=== PATIENT | female | born 1975 | race Caucasian/White ===

== ENCOUNTER 2016-10-09 07:59 | Emergency (ER) | payer MEDICAID ==
[~2016-10-09 07:59] MED LIST: AMBIEN5 MG PO; BENADRYL ALLERG25 M1 PO; CARAFATE1 GM PO; CLARITHROMYCIN500 M1 PO; COL100 PO; COLACE100 MG PO; ELA25 PO; GABAPENTIN300 M2 PO; LORAZEPAM2 MG PO; METHYLPREDNISOLO4 MG PO; MIRALAX17 GM/Dose PO; NEU300 PO; NOR10T PO; PANTOPRAZOLE SO40 M1 PO; PERCOCET1 TA2 PO; POTASSIUM CHLO20 ME1 PO; PROAIR HFA0.09 MG/A1; SERTRALINE HYDR50 M1 PO; VENTOLIN H0.09 MG/A1 INH; ZOC20 PO; ZOFRAN4 M2 PO; ZOLOFT25 MG PO
[2016-10-09] MEDS ORDERED: LOPERAMIDE HCL2 M1 PO (08:12)
[2016-10-09 08:40] LABS: PLATELET COUNT 153 x10^3mcL (130-400)
[2016-10-09 09:03] LABS: CALCIUM 8.8 mg/dL (8.5-10.1); CARBON DIOXIDE 24.2 mmol/L (21-32); CHLORIDE SERUM 109 mmol/L (98-107); CREATININE SERUM 0.7 mg/dL (0.6-1.0); GFR1 > 60 mL/min; GLUCOSE SERUM 105 mg/dL (74-106); POTASSIUM SERUM 3.4 mmol/L (3.5-5.1); SODIUM SERUM 143 mmol/L (136-145)
[2016-10-09 09:06] LABS: RED CELL DISTRIBUTION WIDTH 15.1 % (11.5-14.5)
[2016-10-09 09:07] LABS: ALBUMIN 3.7 g/dL (3.4-5.0); ALKALINE PHOSPHATASE 66 U/L (46-116); ALT/SGPT 12 U/L (14-59); AST/SGOT 12 U/L (15-37); BILIRUBIN TOTAL 0.31 mg/dL (0.20-1.00); TOTAL PROTEIN, SERUM 7.8 g/dL (6.4-8.2)
[2016-10-09 09:14] LABS: ATYPICAL LYMPH 3 %; MONOCYTE 14 % (0-7); SEGMENTED NEUTROPHILS 16 % (37-75); rbc morphology (normal/abnorm) NORMAL (NORMAL)
[2016-10-09 10:34] VITALS: BP 126/94
== END 2016-10-09 10:34 | disposition home or self-care (01) ==
LOC: ED 07:59
PROVIDERS: Emergency Medicine
DX: R40.4 Transient alteration of awareness (principal); R03.0 Elevated blood-pressure reading, without diagnosis of hypertension; Z88.5 Allergy status to narcotic agent; Z88.8 Allergy status to other drugs, medicaments and biological substances
CPT/HCPCS: J2060

== ENCOUNTER 2017-01-27 16:52 | Emergency (ER) | payer OTHER ==
[~2017-01-27] VITALS: Ht 154.9 cm; Wt 91.2 kg
[~2017-01-27 16:52] MED LIST changes: +LOPERAMIDE HCL2 M1 PO
[2017-01-27 19:04] LABS: UA SPECIFIC GRAVITY 1.025 (1.005-1.035); microscopic required? YES; urine erythrocyte NEGATIVE (NEGATIVE)
[2017-01-27 19:10] LABS: PLATELET COUNT 123 x10^3mcL (130-400); RED CELL DISTRIBUTION WIDTH 17.3 % (11.5-14.5)
[2017-01-27 19:13] LABS: ALKALINE PHOSPHATASE 66 U/L (46-116); ALT/SGPT 19 U/L (14-59); AST/SGOT 23 U/L (15-37); BILIRUBIN TOTAL 0.3 mg/dL (0.20-1.00); CALCIUM 8.5 mg/dL (8.5-10.1); CARBON DIOXIDE 24.7 mmol/L (21-32); CHLORIDE SERUM 108 mmol/L (98-107); CREATININE SERUM 0.7 mg/dL (0.6-1.0); GFR1 > 60 mL/min; GLUCOSE SERUM 89 mg/dL (74-106); LIPASE 621 IU/L (73-393); SODIUM SERUM 141 mmol/L (136-145); TOTAL PROTEIN, SERUM 7.9 g/dL (6.4-8.2)
[2017-01-27 19:18] LABS: ALBUMIN 3.3 g/dL (3.4-5.0)
[2017-01-27 19:20] LABS: POTASSIUM SERUM 2.7 mmol/L (3.5-5.1)
[2017-01-27 19:35] VITALS: BP 150/94
[2017-01-27 20:16] LABS: BAND NEUTROPHIL 0 % (0-10); BASOPHIL 0 % (0-2); MONOCYTE 18 % (0-7); SEGMENTED NEUTROPHILS 30 % (37-75)
[2017-01-27 20:17] LABS: rbc morphology (normal/abnorm) ABNORMAL (NORMAL)
== END 2017-01-27 20:18 | disposition left against medical advice (07) ==
LOC: ED 16:52
PROVIDERS: Emergency Medicine
DX: K86.1 Other chronic pancreatitis (principal); E87.6 Hypokalemia; R79.89 Other specified abnormal findings of blood chemistry; M32.9 Systemic lupus erythematosus, unspecified; M79.7 Fibromyalgia; Q05.9 Spina bifida, unspecified; Z90.49 Acquired absence of other specified parts of digestive tract; Z90.81 Acquired absence of spleen
CPT/HCPCS: J1885; J2060; J2765; J3490

== ENCOUNTER 2017-03-29 02:36 | Emergency (ER) | payer OTHER ==
[2017-03-29 04:41] VITALS: BP 132/105
[2017-03-29 04:45] LABS: AMPHETAMINE QUAL UR NONE DETECTED (NEG <=1000)
== END 2017-03-29 04:41 | disposition home or self-care (01) ==
LOC: ED 02:36
PROVIDERS: Emergency Medicine
DX: M79.1 Myalgia (principal); R19.7 Diarrhea, unspecified; M32.9 Systemic lupus erythematosus, unspecified; Q05.9 Spina bifida, unspecified; M35.00 Sjogren syndrome, unspecified; Z88.8 Allergy status to other drugs, medicaments and biological substances

== ENCOUNTER 2017-03-31 12:22 | Inpatient (IN) | payer OTHER ==
[~2017-03-31] VITALS: Ht 157.5 cm; Wt 94.1 kg
[2017-03-31 14:21] LABS: PLATELET COUNT 76 x10^3mcL (130-400); RED CELL DISTRIBUTION WIDTH 20.8 % (11.5-14.5)
[2017-03-31 14:24] LABS: ALKALINE PHOSPHATASE 63 U/L (46-116); ALT/SGPT 19 U/L (14-59); AST/SGOT 22 U/L (15-37); BILIRUBIN TOTAL 0.4 mg/dL (0.20-1.00); CALCIUM 8.7 mg/dL (8.5-10.1); CARBON DIOXIDE 24.2 mmol/L (21-32); CHLORIDE SERUM 107 mmol/L (98-107); GFR1 > 60 mL/min; GLUCOSE SERUM 98 mg/dL (74-106); TOTAL PROTEIN, SERUM 7.6 g/dL (6.4-8.2)
[2017-03-31 14:41] LABS: SODIUM SERUM 141 mmol/L (136-145)
[2017-03-31 14:43] LABS: ALBUMIN 3.3 g/dL (3.4-5.0)
[2017-03-31 14:44] LABS: LIPASE 12075 IU/L (73-393); POTASSIUM SERUM 2.9 mmol/L (3.5-5.1)
[2017-03-31 14:53] LABS: BAND NEUTROPHIL 0 % (0-10); BASOPHIL 0 % (0-2); MONOCYTE 11 % (0-7); SEGMENTED NEUTROPHILS 59 % (37-75); rbc morphology (normal/abnorm) ABNORMAL (NORMAL)
[2017-03-31 15:55] VITALS: BP 117/82
[2017-03-31 16:33] LABS: CHOLESTEROL/HDL RATIO 1.9; MAGNESIUM 1.6 mg/dL (1.8-2.4); PHOSPHOROUS 3.6 mg/dL (2.5-4.9)
[2017-03-31 16:50] VITALS: BP 101/70
[2017-03-31 17:35] LABS: FREE T4 1.31 ng/dL (0.76-1.46); FREE THYROXINE INDEX 3.5 ug/dL (1.4-4.5); T4(THYROXINE) 11.8 ug/dL (4.7-13.3)
[2017-03-31 21:45] VITALS: BP 112/81
[2017-04-01 05:49] VITALS: BP 169/68
[2017-04-01 06:47] LABS: CALCIUM 7.6 mg/dL (8.5-10.1); CARBON DIOXIDE 21.5 mmol/L (21-32); CHLORIDE SERUM 109 mmol/L (98-107); CREATININE SERUM 0.6 mg/dL (0.6-1.0); GFR1 > 60 mL/min; GLUCOSE SERUM 99 mg/dL (74-106); MAGNESIUM 1.6 mg/dL (1.8-2.4); PHOSPHOROUS 2.8 mg/dL (2.5-4.9); POTASSIUM SERUM 3.5 mmol/L (3.5-5.1); SODIUM SERUM 140 mmol/L (136-145)
[2017-04-01 06:48] LABS: AMYLASE 441 U/L (25-115)
[2017-04-01 08:09] LABS: PLATELET COUNT 63 x10^3mcL (130-400); RED CELL DISTRIBUTION WIDTH 21.3 % (11.5-14.5)
[2017-04-01 08:42] LABS: LIPASE 11133 IU/L (73-393)
[2017-04-01 11:17] VITALS: BP 132/91
[2017-04-01 12:29] LABS: BAND NEUTROPHIL 0 % (0-10); BASOPHIL 0 % (0-2)
[2017-04-01 12:30] LABS: SEGMENTED NEUTROPHILS 65 % (37-75)
[2017-04-01 12:33] LABS: MONOCYTE 10 % (0-7)
[2017-04-01 12:35] LABS: PLATELET MORPHOLOGY PLATELETS DECREASED; ovalocyte/elliptocyte 1+; rbc morphology (normal/abnorm) ABNORMAL (NORMAL); target cell (codocyte) 1+
== END 2017-04-01 14:00 | disposition left against medical advice (07) | DRG 439 ==
LOC: ED 12:22 → DU 14:52
PROVIDERS: Emergency Medicine; ADMIT Family Medicine
DX: K85.90 Acute pancreatitis without necrosis or infection, unspecified (principal); D69.3 Immune thrombocytopenic purpura; E44.1 Mild protein-calorie malnutrition; E87.6 Hypokalemia; M32.9 Systemic lupus erythematosus, unspecified; M35.00 Sjogren syndrome, unspecified; M79.7 Fibromyalgia; E83.41 Hypermagnesemia; E05.90 Thyrotoxicosis, unspecified without thyrotoxic crisis or storm; E78.5 Hyperlipidemia, unspecified; F17.210 Nicotine dependence, cigarettes, uncomplicated; Z68.38 Body mass index [BMI] 38.0-38.9, adult
CPT/HCPCS: 83880; 84439; G0480; J1200; J1885; J2765; J3010; J3480; J7030; J7120; Q0092

== ENCOUNTER 2017-04-02 10:17 | Emergency (ER) | payer OTHER ==
[2017-04-02 11:35] LABS: CALCIUM 7.8 mg/dL (8.5-10.1); CARBON DIOXIDE 23.6 mmol/L (21-32); CHLORIDE SERUM 108 mmol/L (98-107); CREATININE SERUM 0.5 mg/dL (0.6-1.0); GFR1 > 60 mL/min; GLUCOSE SERUM 92 mg/dL (74-106); POTASSIUM SERUM 3.1 mmol/L (3.5-5.1); SODIUM SERUM 140 mmol/L (136-145)
[2017-04-02 11:40] LABS: ALKALINE PHOSPHATASE 57 U/L (46-116); ALT/SGPT 11 U/L (14-59); AST/SGOT 12 U/L (15-37); BILIRUBIN TOTAL 0.5 mg/dL (0.20-1.00); TOTAL PROTEIN, SERUM 6.3 g/dL (6.4-8.2)
[2017-04-02 11:58] LABS: ALBUMIN 2.5 g/dL (3.4-5.0); AMYLASE 200 U/L (25-115)
[2017-04-02 11:59] LABS: LIPASE 6521 IU/L (73-393)
[2017-04-02 12:07] LABS: PLATELET COUNT 53 x10^3mcL (130-400); RED CELL DISTRIBUTION WIDTH 21.2 % (11.5-14.5)
[2017-04-02 12:09] LABS: BAND NEUTROPHIL 1 % (0-10); MONOCYTE 8 % (0-7); SEGMENTED NEUTROPHILS 78 % (37-75); rbc morphology (normal/abnorm) ABNORMAL (NORMAL)
[2017-04-02 13:57] VITALS: BP 129/90
== END 2017-04-02 13:57 | disposition home or self-care (01) ==
LOC: ED 10:17
PROVIDERS: Emergency Medicine
DX: K85.20 Alcohol induced acute pancreatitis without necrosis or infection (principal); Q05.9 Spina bifida, unspecified; F41.9 Anxiety disorder, unspecified; F32.9 Major depressive disorder, single episode, unspecified; L93.0 Discoid lupus erythematosus; Z90.710 Acquired absence of both cervix and uterus; Z88.6 Allergy status to analgesic agent; M79.7 Fibromyalgia
CPT/HCPCS: J2550; J3010; J7030

== ENCOUNTER 2017-05-30 12:48 | Inpatient (IN) | payer OTHER ==
[~2017-05-30] VITALS: Ht 154.9 cm; Wt 91.2 kg
[2017-05-30 14:21] LABS: microscopic required? NO
[2017-05-30 14:37] LABS: urine erythrocyte NEGATIVE (NEGATIVE)
[2017-05-30 14:46] LABS: AMPHETAMINE QUAL UR NONE DETECTED (NEG <=1000)
[2017-05-30 14:49] LABS: PLATELET COUNT 85 x10^3mcL (130-400); RED CELL DISTRIBUTION WIDTH 17.7 % (11.5-14.5)
[2017-05-30] MEDS ORDERED: MSC15 PO (14:49)
[2017-05-30 15:04] LABS: MAGNESIUM 1.7 mg/dL (1.8-2.4); PHOSPHOROUS 2.3 mg/dL (2.5-4.9)
[2017-05-30 15:05] LABS: ALBUMIN 3.4 g/dL (3.4-5.0); ALKALINE PHOSPHATASE 62 U/L (46-116); ALT/SGPT 17 U/L (14-59); AST/SGOT 16 U/L (15-37); BILIRUBIN TOTAL 0.58 mg/dL (0.20-1.00); CALCIUM 8.9 mg/dL (8.5-10.1); CARBON DIOXIDE 23.1 mmol/L (21-32); CHLORIDE SERUM 103 mmol/L (98-107); CREATININE SERUM 0.6 mg/dL (0.6-1.0); GFR1 > 60 mL/min; GLUCOSE SERUM 148 mg/dL (74-106); SODIUM SERUM 137 mmol/L (136-145); TOTAL PROTEIN, SERUM 7.7 g/dL (6.4-8.2)
[2017-05-30 15:06] LABS: AMYLASE 217 U/L (25-115)
[2017-05-30 15:08] LABS: POTASSIUM SERUM 2.9 mmol/L (3.5-5.1)
[2017-05-30 15:14] LABS: BAND NEUTROPHIL 0 % (0-10); BASOPHIL 0 % (0-2); MONOCYTE 12 % (0-7); SEGMENTED NEUTROPHILS 42 % (37-75)
[2017-05-30 15:15] LABS: rbc morphology (normal/abnorm) NORMAL (NORMAL)
[2017-05-30 15:30] LABS: LIPASE 7770 IU/L (73-393)
[2017-05-30 16:23] VITALS: BP 146/72
[2017-05-30 16:26] VITALS: Ht 154.9 cm; Wt 91.2 kg
[2017-05-30 21:11] VITALS: BP 157/86
[2017-05-30 21:32] LABS: CALCIUM 8.3 mg/dL (8.5-10.1); CARBON DIOXIDE 25.5 mmol/L (21-32); CHLORIDE SERUM 105 mmol/L (98-107); CREATININE SERUM 0.5 mg/dL (0.6-1.0); GFR1 > 60 mL/min; GLUCOSE SERUM 173 mg/dL (74-106); POTASSIUM SERUM 3.5 mmol/L (3.5-5.1); SODIUM SERUM 138 mmol/L (136-145)
[2017-05-31 04:44] VITALS: BP 154/101
[2017-05-31 06:42] LABS: BASOPHIL % 0 % (0-2); PLATELET COUNT 80 x10^3mcL (130-400); RED CELL DISTRIBUTION WIDTH 17.9 % (11.5-14.5)
[2017-05-31 06:43] LABS: CALCIUM 8.4 mg/dL (8.5-10.1); CARBON DIOXIDE 25.9 mmol/L (21-32); CHLORIDE SERUM 104 mmol/L (98-107); CREATININE SERUM 0.5 mg/dL (0.6-1.0); GFR1 > 60 mL/min; GLUCOSE SERUM 117 mg/dL (74-106); POTASSIUM SERUM 3.5 mmol/L (3.5-5.1); SODIUM SERUM 139 mmol/L (136-145)
[2017-05-31 07:00] LABS: MAGNESIUM 1.9 mg/dL (1.8-2.4); PHOSPHOROUS 1.9 mg/dL (2.5-4.9)
[2017-05-31 07:46] LABS: AMYLASE 219 U/L (25-115); LIPASE 4801 IU/L (73-393)
[2017-05-31 08:00] VITALS: BP 152/92
[2017-05-31] MEDS ORDERED: PERCOCET1 TA5 PO (12:10)
[2017-05-31 14:02] VITALS: BP 122/81
[2017-05-31 17:49] VITALS: BP 137/85
[2017-05-31 20:46] VITALS: BP 142/99
[2017-06-01 04:49] VITALS: BP 131/92
[2017-06-01 05:57] LABS: BASOPHIL % 0.4 % (0-2)
[2017-06-01 06:32] LABS: CALCIUM 7.9 mg/dL (8.5-10.1); CARBON DIOXIDE 19.9 mmol/L (21-32); CHLORIDE SERUM 113 mmol/L (98-107); CREATININE SERUM 0.4 mg/dL (0.6-1.0); GFR1 > 60 mL/min; GLUCOSE SERUM 81 mg/dL (74-106); PHOSPHOROUS 2.3 mg/dL (2.5-4.9); POTASSIUM SERUM 3.7 mmol/L (3.5-5.1); SODIUM SERUM 142 mmol/L (136-145)
[2017-06-01 06:39] LABS: PLATELET COUNT 74 x10^3mcL (130-400); RED CELL DISTRIBUTION WIDTH 18.8 % (11.5-14.5)
[2017-06-01 06:46] LABS: AMYLASE 216 U/L (25-115)
[2017-06-01 08:19] LABS: LIPASE 3905 IU/L (73-393)
[2017-06-01 09:28] VITALS: BP 139/84
[2017-06-01 13:10] VITALS: BP 127/83
[2017-06-01 16:51] VITALS: BP 129/89
== END 2017-06-01 19:47 | disposition left against medical advice (07) | DRG 438 ==
LOC: ED 12:48 → MU 14:25 → DU 14:25 → MU 06-01 09:44
PROVIDERS: Emergency Medicine; Student in an Organized Health Care Education/Training Program
DX: K85.90 Acute pancreatitis without necrosis or infection, unspecified (principal); E43 Unspecified severe protein-calorie malnutrition; D69.3 Immune thrombocytopenic purpura; K86.1 Other chronic pancreatitis; R59.0 Localized enlarged lymph nodes; E87.6 Hypokalemia; E83.42 Hypomagnesemia; E83.39 Other disorders of phosphorus metabolism; M32.9 Systemic lupus erythematosus, unspecified; M79.7 Fibromyalgia; F32.9 Major depressive disorder, single episode, unspecified; E78.5 Hyperlipidemia, unspecified; F41.9 Anxiety disorder, unspecified; F17.210 Nicotine dependence, cigarettes, uncomplicated; E66.9 Obesity, unspecified; Z68.38 Body mass index [BMI] 38.0-38.9, adult; Z53.29 Procedure and treatment not carried out because of patient's decision for other reasons; Z90.49 Acquired absence of other specified parts of digestive tract; Z80.8 Family history of malignant neoplasm of other organs or systems
CPT/HCPCS: 36600; 83880; G0480; J0295; J1885; J2060; J2270; J2550; J3480; J7030; J8597; Q0163; Q9967

== ENCOUNTER 2017-08-05 05:57 | Emergency (ER) | payer OTHER ==
[~2017-08-05] VITALS: Ht 152.4 cm; Wt 90.9 kg
[~2017-08-05 05:57] MED LIST changes: +MSC15 PO; +PERCOCET1 TA5 PO
[2017-08-05 06:02] VITALS: Ht 152.4 cm; Wt 90.9 kg
[2017-08-05 07:28] LABS: ALKALINE PHOSPHATASE 51 U/L (46-116); ALT/SGPT 18 U/L (14-59); AMYLASE 55 U/L (25-115); AST/SGOT 24 U/L (15-37); BILIRUBIN TOTAL 0.32 mg/dL (0.20-1.00); CALCIUM 8.3 mg/dL (8.5-10.1); CARBON DIOXIDE 24.1 mmol/L (21-32); CHLORIDE SERUM 106 mmol/L (98-107); CREATININE SERUM 0.4 mg/dL (0.6-1.0); GFR1 > 60 mL/min; GLUCOSE SERUM 108 mg/dL (74-106); LIPASE 187 IU/L (73-393); SODIUM SERUM 139 mmol/L (136-145); TOTAL PROTEIN, SERUM 7.3 g/dL (6.4-8.2)
[2017-08-05 07:44] LABS: PLATELET COUNT 89 x10^3mcL (130-400); RED CELL DISTRIBUTION WIDTH 16.1 % (11.5-14.5)
[2017-08-05 08:56] LABS: UA SPECIFIC GRAVITY 1.025 (1.005-1.035); microscopic required? YES; urine erythrocyte 1+ (NEGATIVE)
[2017-08-05 09:02] LABS: ALBUMIN 3.3 g/dL (3.4-5.0); POTASSIUM SERUM 2.8 mmol/L (3.5-5.1)
[2017-08-05 09:48] VITALS: BP 118/72
[2017-08-05 10:42] LABS: BAND NEUTROPHIL 0 % (0-10); BASOPHIL 0 % (0-2); MONOCYTE 11 % (0-7); SEGMENTED NEUTROPHILS 19 % (37-75)
[2017-08-05 10:43] LABS: PLATELET MORPHOLOGY PLATELETS DECREASED; rbc morphology (normal/abnorm) ABNORMAL (NORMAL)
[2017-08-05 10:44] LABS: target cell (codocyte) 1+
== END 2017-08-05 09:48 | disposition left against medical advice (07) ==
LOC: ED 05:57
PROVIDERS: Emergency Medicine
DX: E87.6 Hypokalemia (principal); D64.9 Anemia, unspecified; E46 Unspecified protein-calorie malnutrition; M79.7 Fibromyalgia; F32.9 Major depressive disorder, single episode, unspecified; E66.01 Morbid (severe) obesity due to excess calories; M32.9 Systemic lupus erythematosus, unspecified; M35.00 Sjogren syndrome, unspecified; F11.20 Opioid dependence, uncomplicated; Q05.9 Spina bifida, unspecified; D69.3 Immune thrombocytopenic purpura; Z90.49 Acquired absence of other specified parts of digestive tract; Z87.19 Personal history of other diseases of the digestive system; Z88.8 Allergy status to other drugs, medicaments and biological substances
CPT/HCPCS: 83880; J3490; J7030

== ENCOUNTER 2018-01-16 03:09 | Emergency (ER) | payer OTHER ==
[~2018-01-16] VITALS: Ht 154.9 cm; Wt 85.7 kg
[2018-01-16 03:14] VITALS: Ht 154.9 cm; Wt 85.7 kg
[2018-01-16 04:29] LABS: PLATELET COUNT 137 x10^3mcL (130-400)
[2018-01-16 04:33] LABS: CALCIUM 8.6 mg/dL (8.5-10.1); CARBON DIOXIDE 22.1 mmol/L (21-32); CHLORIDE SERUM 108 mmol/L (98-107); CREATININE SERUM 0.8 mg/dL (0.6-1.0); GFR1 > 60 mL/min; GLUCOSE SERUM 106 mg/dL (74-106); POTASSIUM SERUM 3.1 mmol/L (3.5-5.1); SODIUM SERUM 140 mmol/L (136-145)
[2018-01-16 04:39] LABS: ALBUMIN 3.5 g/dL (3.4-5.0); ALKALINE PHOSPHATASE 63 U/L (46-116); ALT/SGPT 15 U/L (14-59); AST/SGOT 16 U/L (15-37); BILIRUBIN TOTAL 0.1 mg/dL (0.20-1.00); LIPASE 399 IU/L (73-393); TOTAL PROTEIN, SERUM 7.9 g/dL (6.4-8.2)
[2018-01-16 04:59] LABS: RED CELL DISTRIBUTION WIDTH 15.1 % (11.5-14.5)
[2018-01-16 05:05] LABS: BASOPHIL % 0.5 % (0-2)
[2018-01-16 06:10] LABS: microscopic required? NO
[2018-01-16 06:42] LABS: UA SPECIFIC GRAVITY 1.015 (1.005-1.035); urine erythrocyte NEGATIVE (NEGATIVE)
[2018-01-16 08:04] VITALS: BP 138/88
== END 2018-01-16 08:04 | disposition home or self-care (01) ==
LOC: ED 03:09
PROVIDERS: Emergency Medicine
DX: K59.8 Other specified functional intestinal disorders (principal); F41.9 Anxiety disorder, unspecified; F32.9 Major depressive disorder, single episode, unspecified; M79.7 Fibromyalgia; G89.29 Other chronic pain; Z90.710 Acquired absence of both cervix and uterus; Z88.8 Allergy status to other drugs, medicaments and biological substances
CPT/HCPCS: J2270; Q9967

== ENCOUNTER 2018-04-01 13:28 | Emergency (ER) | payer OTHER ==
[~2018-04-01] VITALS: Ht 152.4 cm; Wt 82.6 kg
[2018-04-01 13:32] VITALS: Ht 152.4 cm; Wt 82.6 kg
[2018-04-01 14:41] LABS: BASOPHIL % 0.2 % (0-2)
[2018-04-01 14:44] LABS: RED CELL DISTRIBUTION WIDTH 15.4 % (11.5-14.5)
[2018-04-01 14:58] LABS: PLATELET COUNT 25 x10^3mcL (130-400)
[2018-04-01 16:01] LABS: CARBON DIOXIDE 21.6 mmol/L (21-32); CHLORIDE SERUM 107 mmol/L (98-107); CREATININE SERUM 0.7 mg/dL (0.6-1.0); GFR1 > 60 mL/min; GLUCOSE SERUM 101 mg/dL (74-106); POTASSIUM SERUM 3.3 mmol/L (3.5-5.1); SODIUM SERUM 141 mmol/L (136-145)
[2018-04-01 16:05] LABS: ALBUMIN 3.6 g/dL (3.4-5.0); ALKALINE PHOSPHATASE 53 U/L (46-116); ALT/SGPT 14 U/L (14-59); AST/SGOT 16 U/L (15-37); BILIRUBIN TOTAL 0.3 mg/dL (0.20-1.00); LIPASE 465 IU/L (73-393); TOTAL PROTEIN, SERUM 8.1 g/dL (6.4-8.2)
[2018-04-01 16:50] VITALS: BP 140/102
== END 2018-04-01 16:50 | disposition home or self-care (01) ==
LOC: ED 13:28
PROVIDERS: Emergency Medicine
DX: K86.1 Other chronic pancreatitis (principal); F41.9 Anxiety disorder, unspecified; F32.9 Major depressive disorder, single episode, unspecified; M79.7 Fibromyalgia; Z90.710 Acquired absence of both cervix and uterus; Z88.8 Allergy status to other drugs, medicaments and biological substances
CPT/HCPCS: J2270; J2765; J7030

== ENCOUNTER 2018-04-02 23:54 | Inpatient (IN) | payer OTHER ==
[~2018-04-02] VITALS: Ht 152.4 cm; Wt 94.0 kg
[2018-04-03 01:26] VITALS: Ht 152.4 cm; Wt 94.0 kg
[2018-04-03 01:36] LABS: microscopic required? NO
[2018-04-03 01:39] LABS: ALBUMIN 3.4 g/dL (3.4-5.0); ALKALINE PHOSPHATASE 55 U/L (46-116); ALT/SGPT 12 U/L (14-59); AST/SGOT 18 U/L (15-37); BILIRUBIN TOTAL 0.27 mg/dL (0.20-1.00); CALCIUM 8.4 mg/dL (8.5-10.1); CARBON DIOXIDE 18.5 mmol/L (21-32); CHLORIDE SERUM 106 mmol/L (98-107); CREATININE SERUM 0.5 mg/dL (0.6-1.0); GFR1 > 60 mL/min; GLUCOSE SERUM 86 mg/dL (74-106); LIPASE 553 IU/L (73-393); SODIUM SERUM 136 mmol/L (136-145); TOTAL PROTEIN, SERUM 7.7 g/dL (6.4-8.2)
[2018-04-03 01:59] LABS: BASOPHIL % 1.9 % (0-2)
[2018-04-03 02:00] LABS: POTASSIUM SERUM 2.8 mmol/L (3.5-5.1)
[2018-04-03 02:04] LABS: RED CELL DISTRIBUTION WIDTH 14.8 % (11.5-14.5)
[2018-04-03 02:21] LABS: PLATELET COUNT 35 x10^3mcL (130-400)
[2018-04-03 02:26] LABS: rbc morphology (normal/abnorm) ABNORMAL (NORMAL)
[2018-04-03 02:27] LABS: burr cell (echinocyte) 1+; ovalocyte/elliptocyte 1+
[2018-04-03 02:29] LABS: UA SPECIFIC GRAVITY 1.025 (1.005-1.035); urine erythrocyte NEGATIVE (NEGATIVE)
[2018-04-03 10:31] VITALS: BP 122/66
[2018-04-03 12:55] VITALS: BP 128/88
[2018-04-03 17:06] VITALS: BP 130/82
[2018-04-03 20:44] VITALS: BP 125/79
[2018-04-04 06:05] VITALS: BP 119/81
[2018-04-04 06:35] LABS: BASOPHIL % 0.6 % (0-2)
[2018-04-04 06:51] LABS: CARBON DIOXIDE 25.3 mmol/L (21-32); CHLORIDE SERUM 108 mmol/L (98-107); CREATININE SERUM 0.6 mg/dL (0.6-1.0); GFR1 > 60 mL/min; GLUCOSE SERUM 90 mg/dL (74-106); SODIUM SERUM 140 mmol/L (136-145)
[2018-04-04 06:55] LABS: POTASSIUM SERUM 2.9 mmol/L (3.5-5.1)
[2018-04-04 07:46] LABS: RED CELL DISTRIBUTION WIDTH 15.8 % (11.5-14.5)
[2018-04-04 08:19] VITALS: BP 103/72
[2018-04-04 11:45] LABS: BAND NEUTROPHIL 6 % (0-10); BASOPHIL 0 % (0-2); MONOCYTE 14 % (0-7); SEGMENTED NEUTROPHILS 43 % (37-75)
[2018-04-04 11:48] LABS: rbc morphology (normal/abnorm) ABNORMAL (NORMAL)
[2018-04-04 11:49] LABS: acanthocyte (spur cell) 1+; burr cell (echinocyte) 1+; target cell (codocyte) 1+
[2018-04-04 11:50] LABS: schistocyte (helmet cell) 1+
[2018-04-04 11:54] LABS: ovalocyte/elliptocyte 1+
[2018-04-04 11:55] LABS: PLATELET COUNT 45 x10^3mcL (130-400)
[2018-04-04 16:50] VITALS: BP 126/84
[2018-04-04 20:53] VITALS: BP 115/81
[2018-04-05 05:48] VITALS: BP 104/74
[2018-04-05 06:43] LABS: CALCIUM 8.2 mg/dL (8.5-10.1); CARBON DIOXIDE 20.7 mmol/L (21-32); CHLORIDE SERUM 108 mmol/L (98-107); CREATININE SERUM 0.6 mg/dL (0.6-1.0); GFR1 > 60 mL/min; GLUCOSE SERUM 99 mg/dL (74-106); POTASSIUM SERUM 3.3 mmol/L (3.5-5.1); SODIUM SERUM 140 mmol/L (136-145)
[2018-04-05 07:01] LABS: BASOPHIL % 0.7 % (0-2)
[2018-04-05 07:09] LABS: PLATELET COUNT 30 x10^3mcL (130-400); RED CELL DISTRIBUTION WIDTH 15.3 % (11.5-14.5)
[2018-04-05 09:26] VITALS: BP 108/74
[2018-04-05 09:55] VITALS: BP 108/74
[2018-04-05 10:23] VITALS: BP 108/74
== END 2018-04-05 11:15 | disposition home or self-care (01) | DRG 640 ==
LOC: ED 23:54 → MU 04-03 02:43 → DU 04-03 02:43 → MU 04-03 13:51
PROVIDERS: Emergency Medicine; Internal Medicine
PROC: 05HP33Z Insertion of Infusion Device into Right External Jugular Vein, Percutaneous Approach (ICD-10-PCS; principal; 2018-04-03)
DX: E86.0 Dehydration (principal); K85.90 Acute pancreatitis without necrosis or infection, unspecified; F11.20 Opioid dependence, uncomplicated; K86.1 Other chronic pancreatitis; E87.6 Hypokalemia; F32.9 Major depressive disorder, single episode, unspecified; F41.9 Anxiety disorder, unspecified; M79.7 Fibromyalgia; G89.29 Other chronic pain; G40.909 Epilepsy, unspecified, not intractable, without status epilepticus; M32.9 Systemic lupus erythematosus, unspecified; D69.6 Thrombocytopenia, unspecified; M35.00 Sjogren syndrome, unspecified; Q05.9 Spina bifida, unspecified
CPT/HCPCS: J1170; J1200; J1885; J2060; J2270; J2550; J3480; J3490; J7030; J7050; Q0092

== ENCOUNTER 2018-05-05 02:18 | Emergency (ER) | payer OTHER ==
[~2018-05-05] VITALS: Ht 154.9 cm; Wt 91.2 kg
[2018-05-05 02:31] VITALS: Ht 154.9 cm; Wt 91.2 kg
[2018-05-05 03:52] VITALS: BP 121/83
== END 2018-05-05 03:52 | disposition home or self-care (01) ==
LOC: ED 02:18
DX: M54.5 Low back pain (principal); Q05.9 Spina bifida, unspecified; F32.9 Major depressive disorder, single episode, unspecified; F41.9 Anxiety disorder, unspecified; M32.9 Systemic lupus erythematosus, unspecified; D69.3 Immune thrombocytopenic purpura; M35.00 Sjogren syndrome, unspecified; G89.29 Other chronic pain; Z90.49 Acquired absence of other specified parts of digestive tract; Z90.710 Acquired absence of both cervix and uterus; Z88.2 Allergy status to sulfonamides; Z88.6 Allergy status to analgesic agent; Z88.8 Allergy status to other drugs, medicaments and biological substances
CPT/HCPCS: J2270

== ENCOUNTER 2018-05-29 19:31 | Emergency (ER) | payer OTHER ==
[~2018-05-29] VITALS: Ht 152.4 cm; Wt 86.2 kg
[2018-05-29 19:37] VITALS: Ht 152.4 cm; Wt 86.2 kg
[2018-05-29 20:47] LABS: CALCIUM 8.9 mg/dL (8.5-10.1); CARBON DIOXIDE 24.8 mmol/L (21-32); CHLORIDE SERUM 107 mmol/L (98-107); CREATININE SERUM 0.8 mg/dL (0.6-1.0); GFR1 > 60 mL/min; GLUCOSE SERUM 104 mg/dL (74-106); POTASSIUM SERUM 3.3 mmol/L (3.5-5.1); SODIUM SERUM 141 mmol/L (136-145)
[2018-05-29 20:53] LABS: ALBUMIN 3.5 g/dL (3.4-5.0); ALKALINE PHOSPHATASE 70 U/L (46-116); ALT/SGPT 23 U/L (14-59); AST/SGOT 21 U/L (15-37); BILIRUBIN TOTAL 0.2 mg/dL (0.20-1.00); TOTAL PROTEIN, SERUM 8.2 g/dL (6.4-8.2)
[2018-05-29 21:08] LABS: BASOPHIL % 0 % (0-2); PLATELET COUNT 58 x10^3mcL (130-400); RED CELL DISTRIBUTION WIDTH 16.8 % (11.5-14.5)
[2018-05-29 21:16] LABS: AMPHETAMINE QUAL UR NONE DETECTED (See below)
[2018-05-29 23:42] VITALS: BP 128/91
== END 2018-05-29 23:42 | disposition home or self-care (01) ==
LOC: ED 19:31
PROVIDERS: Emergency Medicine
DX: F41.0 Panic disorder [episodic paroxysmal anxiety] (principal); F32.9 Major depressive disorder, single episode, unspecified; M79.7 Fibromyalgia; Z88.2 Allergy status to sulfonamides; Z88.6 Allergy status to analgesic agent; Z88.8 Allergy status to other drugs, medicaments and biological substances
CPT/HCPCS: 36415; G0480; J1200

== ENCOUNTER 2018-05-31 19:34 | Emergency (ER) | payer OTHER ==
[~2018-05-31] VITALS: Ht 154.9 cm; Wt 90.3 kg
[2018-05-31 20:17] VITALS: Ht 154.9 cm; Wt 90.3 kg
[2018-05-31 21:37] VITALS: BP 120/76
== END 2018-05-31 21:37 | disposition home or self-care (01) ==
LOC: ED 19:34
DX: F41.9 Anxiety disorder, unspecified (principal); F32.9 Major depressive disorder, single episode, unspecified; M79.7 Fibromyalgia; Z88.2 Allergy status to sulfonamides; Z88.6 Allergy status to analgesic agent; Z88.8 Allergy status to other drugs, medicaments and biological substances; Z90.710 Acquired absence of both cervix and uterus
CPT/HCPCS: J2060

== ENCOUNTER 2018-06-07 11:04 | Emergency (ER) | payer OTHER ==
[2018-06-07 11:24] VITALS: Ht 154.9 cm
[2018-06-07 12:35] LABS: CALCIUM 8.5 mg/dL (8.5-10.1); CARBON DIOXIDE 25.3 mmol/L (21-32); CHLORIDE SERUM 107 mmol/L (98-107); CREATININE SERUM 0.6 mg/dL (0.6-1.0); GFR1 > 60 mL/min; GLUCOSE SERUM 89 mg/dL (74-106); POTASSIUM SERUM 3.7 mmol/L (3.5-5.1); SODIUM SERUM 139 mmol/L (136-145)
[2018-06-07 12:40] LABS: ALKALINE PHOSPHATASE 54 U/L (46-116); ALT/SGPT 14 U/L (14-59); AST/SGOT 13 U/L (15-37); BILIRUBIN TOTAL 0.34 mg/dL (0.20-1.00); TOTAL PROTEIN, SERUM 7.1 g/dL (6.4-8.2)
[2018-06-07 12:56] LABS: RED CELL DISTRIBUTION WIDTH 16.9 % (11.5-14.5)
[2018-06-07 12:57] LABS: PLATELET COUNT 50 x10^3mcL (130-400)
[2018-06-07 13:22] LABS: BAND NEUTROPHIL 1 % (0-10); BASOPHIL 0 % (0-2); MONOCYTE 13 % (0-7); SEGMENTED NEUTROPHILS 40 % (37-75)
[2018-06-07 13:25] LABS: PLATELET MORPHOLOGY PLATELETS DECREASED; rbc morphology (normal/abnorm) ABNORMAL (NORMAL)
[2018-06-07 13:29] VITALS: BP 125/98
== END 2018-06-07 13:29 | disposition home or self-care (01) ==
LOC: ED 11:04
PROVIDERS: Emergency Medicine
DX: R51 Headache (principal); D69.6 Thrombocytopenia, unspecified; F41.9 Anxiety disorder, unspecified; F32.9 Major depressive disorder, single episode, unspecified; M79.7 Fibromyalgia; G89.29 Other chronic pain; Z90.49 Acquired absence of other specified parts of digestive tract; Z90.710 Acquired absence of both cervix and uterus; Z98.890 Other specified postprocedural states; Z88.2 Allergy status to sulfonamides; Z88.6 Allergy status to analgesic agent; Z88.8 Allergy status to other drugs, medicaments and biological substances
CPT/HCPCS: 36415; J0780

== ENCOUNTER 2018-06-11 12:10 | Inpatient (IN) | payer OTHER ==
[~2018-06-11] VITALS: Ht 152.4 cm; Wt 108.9 kg
[2018-06-11 12:15] VITALS: Ht 152.4 cm; Wt 108.9 kg
[2018-06-11 14:42] LABS: microscopic required? NO
[2018-06-11 14:47] LABS: UA SPECIFIC GRAVITY >=1.030 (1.005-1.035); urine erythrocyte NEGATIVE (NEGATIVE)
[2018-06-11 14:55] LABS: CALCIUM 8.5 mg/dL (8.5-10.1); CARBON DIOXIDE 25.9 mmol/L (21-32); CHLORIDE SERUM 106 mmol/L (98-107); CREATININE SERUM 0.7 mg/dL (0.6-1.0); GFR1 > 60 mL/min; GLUCOSE SERUM 97 mg/dL (74-106); POTASSIUM SERUM 3.6 mmol/L (3.5-5.1); SODIUM SERUM 138 mmol/L (136-145)
[2018-06-11 14:58] LABS: AMPHETAMINE QUAL UR NONE DETECTED (See below)
[2018-06-11 14:59] LABS: ALKALINE PHOSPHATASE 54 U/L (46-116); ALT/SGPT 14 U/L (14-59); AMYLASE 56 U/L (25-115); AST/SGOT 13 U/L (15-37); BILIRUBIN TOTAL 0.3 mg/dL (0.20-1.00); LIPASE 150 IU/L (73-393); TOTAL PROTEIN, SERUM 7.3 g/dL (6.4-8.2)
[2018-06-11 15:00] LABS: ALBUMIN 3.2 g/dL (3.4-5.0); BASOPHIL % 1.1 % (0-2); CHOLESTEROL 117 mg/dL (<200); HDL CHOLESTEROL 27 mg/dL (40-60)
[2018-06-11 15:03] LABS: PLATELET COUNT 85 x10^3mcL (130-400); RED CELL DISTRIBUTION WIDTH 16.3 % (11.5-14.5)
[2018-06-11] MEDS ORDERED: ZOLOFT50 MG PO (17:01)
[2018-06-11] MEDS ORDERED: AMBIEN CR12.5 MG PO (17:01)
[2018-06-11] MEDS ORDERED: LORAZEPAM2 MG PO (17:02)
[2018-06-11] MEDS ORDERED: BENADRYL ALLERG25 M1 PO (17:02)
[2018-06-11 17:27] LABS: PHOSPHOROUS 3.9 mg/dL (2.5-4.9)
[2018-06-11 17:28] LABS: T3 TOTAL 1.91 ng/mL
[2018-06-11 17:37] LABS: FREE T4 1.07 ng/dL (0.76-1.46); FREE THYROXINE INDEX 2.7 ug/dL (1.4-4.5); T4(THYROXINE) 9.4 ug/dL (4.7-13.3)
[2018-06-11 17:44] LABS: CHOLESTEROL/HDL RATIO 4.5
[2018-06-11 17:53] VITALS: BP 138/88
[2018-06-11 21:34] VITALS: BP 123/78
[2018-06-11 23:49] VITALS: BP 149/91
[2018-06-12] VITALS (7 sets, daily range): BP systolic 105–124; BP diastolic 66–91
[2018-06-13 05:13] VITALS: BP 111/77
[2018-06-13 06:25] LABS: CALCIUM 8.2 mg/dL (8.5-10.1); CARBON DIOXIDE 25.9 mmol/L (21-32); CHLORIDE SERUM 109 mmol/L (98-107); CREATININE SERUM 0.6 mg/dL (0.6-1.0); GFR1 > 60 mL/min; GLUCOSE SERUM 92 mg/dL (74-106); MAGNESIUM 1.9 mg/dL (1.8-2.4); PHOSPHOROUS 3.2 mg/dL (2.5-4.9); POTASSIUM SERUM 3.7 mmol/L (3.5-5.1); SODIUM SERUM 141 mmol/L (136-145)
[2018-06-13 07:30] LABS: BASOPHIL % 0 % (0-2); PLATELET COUNT 83 x10^3mcL (130-400); RED CELL DISTRIBUTION WIDTH 16.7 % (11.5-14.5)
[2018-06-13 08:53] VITALS: BP 123/76
[2018-06-13 10:52] VITALS: BP 122/60
[2018-06-13 13:17] VITALS: BP 103/64
== END 2018-06-13 15:27 | disposition left against medical advice (07) | DRG 206 ==
LOC: ED 12:10 → DU 16:40
PROVIDERS: Emergency Medicine; ADMIT Internal Medicine
DX: M94.0 Chondrocostal junction syndrome [Tietze] (principal); Z68.42 Body mass index [BMI] 45.0-49.9, adult; D69.3 Immune thrombocytopenic purpura; F41.1 Generalized anxiety disorder; M35.00 Sjogren syndrome, unspecified; M32.9 Systemic lupus erythematosus, unspecified; M79.7 Fibromyalgia; G89.29 Other chronic pain; G40.909 Epilepsy, unspecified, not intractable, without status epilepticus; Q05.9 Spina bifida, unspecified; F32.9 Major depressive disorder, single episode, unspecified; E66.01 Morbid (severe) obesity due to excess calories
CPT/HCPCS: 83880; 84439; 85378; J0780; J2270; J2550

== ENCOUNTER 2018-07-19 21:32 | Inpatient (IN) | payer OTHER ==
[~2018-07-19] VITALS: Ht 154.9 cm; Wt 93.4 kg
[~2018-07-19 21:32] MED LIST changes: +AMBIEN CR12.5 MG PO; +ZOLOFT50 MG PO
[2018-07-19 21:37] VITALS: Ht 154.9 cm; Wt 93.4 kg
[2018-07-19 23:48] LABS: microscopic required? NO
[2018-07-19 23:58] LABS: UA SPECIFIC GRAVITY >=1.030 (1.005-1.035); urine erythrocyte NEGATIVE (NEGATIVE)
[2018-07-20] VITALS (7 sets, daily range): BP systolic 108–136; BP diastolic 67–98
[2018-07-20 00:06] LABS: BASOPHIL % 0.1 % (0-2); PLATELET COUNT 138 x10^3mcL (130-400)
[2018-07-20 00:07] LABS: RED CELL DISTRIBUTION WIDTH 15.4 % (11.5-14.5)
[2018-07-20 00:08] LABS: CALCIUM 8.2 mg/dL (8.5-10.1); CARBON DIOXIDE 23.5 mmol/L (21-32); CHLORIDE SERUM 109 mmol/L (98-107); CREATININE SERUM 0.8 mg/dL (0.6-1.0); GFR1 > 60 mL/min; GLUCOSE SERUM 91 mg/dL (74-106); POTASSIUM SERUM 3.6 mmol/L (3.5-5.1); SODIUM SERUM 141 mmol/L (136-145)
[2018-07-20 00:09] LABS: ALKALINE PHOSPHATASE 50 U/L (46-116); ALT/SGPT 12 U/L (14-59); AST/SGOT 13 U/L (15-37); BILIRUBIN TOTAL 0.2 mg/dL (0.20-1.00); LIPASE 135 IU/L (73-393); TOTAL PROTEIN, SERUM 6.8 g/dL (6.4-8.2)
[2018-07-20 00:10] LABS: ALBUMIN 3.1 g/dL (3.4-5.0)
[2018-07-20] MEDS ORDERED: PERCOCET1 TA5 PO (00:47)
[2018-07-21 06:08] VITALS: BP 128/79
[2018-07-21 06:41] LABS: CALCIUM 7.9 mg/dL (8.5-10.1); CHLORIDE SERUM 107 mmol/L (98-107); CREATININE SERUM 0.6 mg/dL (0.6-1.0); GFR1 > 60 mL/min; GLUCOSE SERUM 91 mg/dL (74-106); POTASSIUM SERUM 3.8 mmol/L (3.5-5.1); SODIUM SERUM 141 mmol/L (136-145)
[2018-07-21 06:57] LABS: BASOPHIL % 0.8 % (0-2)
[2018-07-21 06:59] LABS: PLATELET COUNT 126 x10^3mcL (130-400); RED CELL DISTRIBUTION WIDTH 15.1 % (11.5-14.5)
[2018-07-21 08:58] VITALS: BP 124/80
[2018-07-21 13:34] VITALS: BP 124/80
== END 2018-07-21 13:45 | disposition home or self-care (01) | DRG 391 ==
LOC: ED 21:32 → MU 07-20 00:45
PROVIDERS: Emergency Medicine; ADMIT Internal Medicine
DX: R11.2 Nausea with vomiting, unspecified (principal); J96.01 Acute respiratory failure with hypoxia; D69.3 Immune thrombocytopenic purpura; K86.1 Other chronic pancreatitis; E86.0 Dehydration; R51 Headache; R23.3 Spontaneous ecchymoses; T40.2X5A Adverse effect of other opioids, initial encounter; R10.9 Unspecified abdominal pain; J44.9 Chronic obstructive pulmonary disease, unspecified; G40.909 Epilepsy, unspecified, not intractable, without status epilepticus; G89.29 Other chronic pain; M32.9 Systemic lupus erythematosus, unspecified; M79.7 Fibromyalgia; Q05.9 Spina bifida, unspecified; F41.8 Other specified anxiety disorders; F11.229 Opioid dependence with intoxication, unspecified; F32.9 Major depressive disorder, single episode, unspecified; Z68.38 Body mass index [BMI] 38.0-38.9, adult; Z90.710 Acquired absence of both cervix and uterus; Z90.81 Acquired absence of spleen; Y92.009 Unspecified place in unspecified non-institutional (private) residence as the place of occurrence of the external cause
CPT/HCPCS: 36600; J2060; J2270; J2550; J2765; J3010; J7030; Q0163

== ENCOUNTER 2018-07-23 22:10 | Emergency (ER) | payer OTHER ==
[~2018-07-23] VITALS: Ht 157.5 cm; Wt 92.5 kg
[2018-07-23 22:37] VITALS: BP 141/104; Ht 157.5 cm; Wt 92.5 kg
== END 2018-07-24 00:30 | disposition left against medical advice (07) ==
LOC: ED 22:10
DX: Z53.21 Procedure and treatment not carried out due to patient leaving prior to being seen by health care provider (principal)

== ENCOUNTER 2018-12-04 23:18 | Emergency (ER) | payer OTHER ==
[~2018-12-04] VITALS: Ht 152.4 cm; Wt 76.2 kg
[2018-12-04 23:23] VITALS: Ht 152.4 cm; Wt 76.2 kg
[2018-12-05 00:54] LABS: BASOPHIL % 0 % (0-2); PLATELET COUNT 64 x10^3mcL (130-400); RED CELL DISTRIBUTION WIDTH 14.9 % (11.5-14.5)
[2018-12-05 00:58] LABS: ALKALINE PHOSPHATASE 50 U/L (46-116); ALT/SGPT 13 U/L (14-59); AMYLASE 54 U/L (25-115); AST/SGOT 11 U/L (15-37); BILIRUBIN TOTAL 0.41 mg/dL (0.20-1.00); CARBON DIOXIDE 27.8 mmol/L (21-32); CHLORIDE SERUM 110 mmol/L (98-107); CREATININE SERUM 0.8 mg/dL (0.6-1.0); GFR1 > 60 mL/min; GLUCOSE SERUM 108 mg/dL (74-106); LIPASE 344 IU/L (73-393); SODIUM SERUM 144 mmol/L (136-145); TOTAL PROTEIN, SERUM 6.4 g/dL (6.4-8.2)
[2018-12-05 01:01] LABS: POTASSIUM SERUM 2.1 mmol/L (3.5-5.1)
[2018-12-05 02:06] LABS: ALKALINE PHOSPHATASE 53 U/L (46-116); ALT/SGPT 15 U/L (14-59); AST/SGOT 15 U/L (15-37); BILIRUBIN TOTAL 0.41 mg/dL (0.20-1.00); CALCIUM 8.2 mg/dL (8.5-10.1); CARBON DIOXIDE 25.4 mmol/L (21-32); CHLORIDE SERUM 109 mmol/L (98-107); CREATININE SERUM 0.7 mg/dL (0.6-1.0); GFR1 > 60 mL/min; GLUCOSE SERUM 96 mg/dL (74-106); SODIUM SERUM 144 mmol/L (136-145); TOTAL PROTEIN, SERUM 6.4 g/dL (6.4-8.2)
[2018-12-05 02:09] LABS: POTASSIUM SERUM 2.3 mmol/L (3.5-5.1)
[2018-12-05 02:11] VITALS: BP 127/88
== END 2018-12-05 02:11 | disposition left against medical advice (07) ==
LOC: ED 23:18
PROVIDERS: Emergency Medicine
DX: R07.89 Other chest pain (principal); M79.7 Fibromyalgia; D69.6 Thrombocytopenia, unspecified; F41.9 Anxiety disorder, unspecified; F32.9 Major depressive disorder, single episode, unspecified; Q05.9 Spina bifida, unspecified; Z88.2 Allergy status to sulfonamides; Z88.6 Allergy status to analgesic agent; Z98.890 Other specified postprocedural states; Z90.49 Acquired absence of other specified parts of digestive tract; Z90.710 Acquired absence of both cervix and uterus; Z90.89 Acquired absence of other organs
CPT/HCPCS: 36415

== ENCOUNTER 2019-04-06 00:04 | Emergency (ER) | payer OTHER ==
[~2019-04-06] VITALS: Ht 152.4 cm; Wt 56.2 kg
[2019-04-06 01:19] VITALS: Ht 152.4 cm; Wt 56.2 kg
[2019-04-06 04:30] VITALS: BP 135/81
== END 2019-04-06 04:30 | disposition home or self-care (01) ==
LOC: ED 00:04
DX: G89.29 Other chronic pain (principal); M54.5 Low back pain; M25.551 Pain in right hip; F17.200 Nicotine dependence, unspecified, uncomplicated; D69.3 Immune thrombocytopenic purpura; Z90.710 Acquired absence of both cervix and uterus; Z90.49 Acquired absence of other specified parts of digestive tract; Z98.890 Other specified postprocedural states; Z90.89 Acquired absence of other organs; Z88.2 Allergy status to sulfonamides; Z88.6 Allergy status to analgesic agent

== ENCOUNTER 2019-05-11 15:25 | Emergency (ER) | payer OTHER ==
[~2019-05-11] VITALS: Ht 152.4 cm; Wt 64.0 kg
[2019-05-11 15:33] VITALS: BP 144/96; Ht 152.4 cm; Wt 64.0 kg
== END 2019-05-11 17:35 | disposition left against medical advice (07) ==
LOC: ED 15:25
DX: R10.2 Pelvic and perineal pain (principal); M79.7 Fibromyalgia; Z98.890 Other specified postprocedural states; Z90.710 Acquired absence of both cervix and uterus; Z90.49 Acquired absence of other specified parts of digestive tract; Z88.2 Allergy status to sulfonamides; Z88.6 Allergy status to analgesic agent; Z53.21 Procedure and treatment not carried out due to patient leaving prior to being seen by health care provider